=== PATIENT | male | born 1980 | race Caucasian/White ===

== ENCOUNTER 2019-02-14 12:08 | Day surgery (SDC) | payer MEDICARE, MEDICAID ==
[~2019-02-14] VITALS: Ht 149.9 cm; Wt 50.3 kg
[~2019-02-14 12:08] MED LIST: BUPIVACAINE/EPIN 0.25% 30 ML VIAL As Ordered ONE; COLA100C5 PO; CVS400CA PO; HYDR1CRE93 TOP; IBUP200C25 PO; LIDOCAINE 1% MDV 20ML VIAL SQ PRN; LIDOCAINE 2% INJ 100 MG/5 ML SDV (FOR ANES.) As Ordered ONE; LR 1,000 ML IV ONE; MIDAZOLAM INJ 2 MG/2 ML VIAL (J2250) As Ordered ONE; MIRA3350 PO; OMEP1CAP73 PO; OPTI0.5D5 OU; SENO8.6T5 PO; [UNRECOGNIZED DRUG - OTHER] PO; fentaNYL 100 MCG/2 ML INJECTION (J3010) As Ordered ONE; propofoL 200 MG/20 ML VIAL As Ordered ONE
[2019-02-14] MEDS ORDERED: PHENYLephrine HCL 500 MCG/5 ML (100MCG/ML) SYRINGE (J2370) As Ordered ONE (13:21)
[2019-02-14] MEDS ORDERED: ONDANSETRON 4MG/2ML VIAL (J2405) As Ordered ONE (13:29)
[2019-02-14] MEDS ORDERED: KETOROLAC 60 MG/2 ML VIAL (J1885) As Ordered ONE (13:29)
[2019-02-14] MEDS ORDERED: dexameTHASONE 4 MG/ML 1ML VIAL (J1100) As Ordered ONE (13:30)
--- NOTE | 2019-02-14 14:17 | RO ---
DATE OF PROCEDURE: 02/14/2019 PREOPERATIVE DIAGNOSIS: Left scalp cyst. POSTOPERATIVE DIAGNOSIS: Left scalp cyst (4 x 3 cm). PROCEDURE: Excision of left scalp cyst. SURGEON: Dr. David Paredes ANESTHESIA: IV sedation plus local. ESTIMATED BLOOD LOSS: Minimal. FLUIDS: Crystalloid. DESCRIPTION OF PROCEDURE: The patient was brought to the operating room and was given IV sedation, prepped and draped in the usual sterile fashion. Local lidocaine mixed with epinephrine was infiltrated into the skin, subcutaneous tissue surrounding the scalp cyst on the left side of his head. An elliptical incision was made over the top of the cyst and using electrocautery to go through dermis, the cyst wall was appreciated and a combination of blunt and sharp dissection, as well as electrocautery was used to dissect out the scalp cyst and removing it in its entirety. Hemostasis was achieved with electrocautery. The dermis was brought together with 3-0 Vicryl, 4-0 Vicryl subcuticular was used and then the skin covered with Dermabond. The patient was awakened from sedation, brought to the recovery room awake, alert, hemodynamically stable. Sponge and needle counts correct times two.
[2019-02-14] MEDS ORDERED: fentaNYL 100 MCG/2 ML INJECTION (J3010) IV PRN (14:45)
[2019-02-14] MEDS ORDERED: LR 1,000 ML IV SCH ×3 (14:45→15:00)
[2019-02-14] MEDS ORDERED: ONDANSETRON 4MG/2ML VIAL (J2405) IV PRN (14:45)
[2019-02-14] MEDS ORDERED: ACETAMINOPHEN TAB 650MG DOSE (2X325MG) PO PRN (14:45)
[2019-02-14 17:00] VITALS: BP 102/58
== END 2019-02-14 17:15 | disposition home or self-care (01) ==
LOC: M SDC 12:08
PROVIDERS: ATTEND Surgery
DX: L72.11 Pilar cyst (principal); G80.9 Cerebral palsy, unspecified; M41.9 Scoliosis, unspecified; H54.8 Legal blindness, as defined in USA; G47.33 Obstructive sleep apnea (adult) (pediatric); K20.9 Esophagitis, unspecified; R13.10 Dysphagia, unspecified; M81.0 Age-related osteoporosis without current pathological fracture; Z79.899 Other long term (current) drug therapy; Z99.3 Dependence on wheelchair; Z87.81 Personal history of (healed) traumatic fracture
CPT/HCPCS: 11424; 88304; J1100; J1885; J2250; J2370; J2405; J3010